=== PATIENT | male | born 1980 | race Caucasian/White ===

== ENCOUNTER 2016-11-05 03:14 | Emergency (ER) | payer MEDICAID ==
[~2016-11-05] VITALS: Ht 172.7 cm; Wt 77.0 kg
[2016-11-05] MEDS ORDERED: LORAZEPAM 2MG/ML CPJ IV STA (06:49)
[2016-11-05] MEDS ORDERED: LORAZEPAM 2MG/ML CPJ IM ONE (07:00)
[2016-11-05 07:42] LABS: CARBON DIOXIDE 25 mEq/L (21-32); CHLORIDE 106 mEq/L (98-107); ETHANOL BLOOD 29 mg/dL
[2016-11-05 07:47] LABS: BASOPHILS % 0.5 % (0.0-2.0); EOSINOPHILS % 0.8 % (0.0-5.0); HEMATOCRIT. 41.5 % (42.0-52.0); HEMOGLOBIN. 14.5 g/dL (14.0-18.0); LYMPHOCYTES % 25.6 % (20.0-50.0); MEAN CORPUSCULAR HEMOGLOBIN 31.3 pg (28.0-32.0); MEAN CORPUSCULAR VOLUME 89.8 fL (80.0-94.0); MEAN PLATELET VOLUME 7.8 fl (7.4-10.4); MONOCYTES % 8.3 % (2.0-8.0); NEUTROPHILS % 64.8 % (40.0-76.0); PLATELET 221 x1000/uL (130-400); RED BLOOD CELL COUNT 4.62 mill/uL (4.7-6.1); RED CELL DISTRIBUTION WIDTH 13.3 % (11.6-14.6)
[2016-11-05 08:56] VITALS: BP 95/54
== END 2016-11-05 10:22 | disposition home or self-care (01) ==
LOC: ER 03:24
DX: R44.0 Auditory hallucinations (principal); R45.851 Suicidal ideations; F31.9 Bipolar disorder, unspecified; F12.10 Cannabis abuse, uncomplicated
CPT/HCPCS: 36415; 80053; 80307; 80329; 85025; 96372; 99284; G0482; J2060; Z7610

== ENCOUNTER 2021-10-30 20:09 | Emergency (ER) | payer MEDICAID ==
[~2021-10-30] VITALS: Ht 185.4 cm; Wt 87.0 kg
[2021-10-30 21:16] VITALS: BP 112/78
== END 2021-10-30 21:20 | disposition home or self-care (01) ==
LOC: ER 20:09
DX: S01.112A Laceration without foreign body of left eyelid and periocular area, initial encounter (principal); Y08.89XA Assault by other specified means, initial encounter; Y93.89 Activity, other specified; Y92.89 Other specified places as the place of occurrence of the external cause; Y99.8 Other external cause status; F31.9 Bipolar disorder, unspecified; F17.290 Nicotine dependence, other tobacco product, uncomplicated; F12.10 Cannabis abuse, uncomplicated
CPT/HCPCS: 12011; 99282

== ENCOUNTER 2023-10-04 19:21 | Emergency (ER) | payer MEDICAID ==
[~2023-10-04] VITALS: Ht 172.7 cm; Wt 87.0 kg
[2023-10-04 19:35] VITALS: TEMP 99.1; O2SAT 100
[2023-10-04] MEDS: ACETAMINOPHEN 500MG TABLET PO ONE (20:05)
[2023-10-04] MEDS: LORAZEPAM 0.5MG TABLET PO ONE (20:10)
[2023-10-04] MEDS: IBUPROFEN 800MG TABLET PO ONE (20:11)
[2023-10-04] MEDS: MIDAZOLAM HCL 2 MG/2 ML VIAL IM ONE (20:43)
[2023-10-04 22:30] LABS: *AMPHETAMINES SCREEN URINE NEGATIVE (NEGATIVE); *BARBITURATES SCREEN URINE NEGATIVE (NEGATIVE); *BENZODIAZEPINES SCREEN URINE NEGATIVE (NEGATIVE); *COCAINE SCREEN URINE NEGATIVE (NEGATIVE); CANNABINOID URINE SCREEN PRESUMPTIVE POSITIVE (NEGATIVE); ECSTASY MDMA SCREEN URINE NEGATIVE (NEGATIVE); METHADONE URINE SCREEN NEGATIVE (NEGATIVE); OPIATES URINE SCREEN NEGATIVE (NEGATIVE); PHENCYCLIDINE URINE SCREEN NEGATIVE (NEGATIVE)
[2023-10-04] MEDS: DIPHENHYDRAMINE 50MG/ML VIAL IM ONE (22:38)
[2023-10-04] MEDS: HALOPERIDOL LACTATE 5MG/ML VIAL IM ONE (22:38)
[2023-10-05 00:13] LABS: BASOPHILS % 0.4 % (0.0-2.0); HEMATOCRIT. 43.5 % (42.0-52.0); HEMOGLOBIN. 14.9 g/dL (14.0-18.0); LYMPHOCYTES % 12.1 % (20.0-50.0); MEAN CORPUSCULAR HEMOGLOBIN 32.1 pg (28.0-32.0); MEAN CORPUSCULAR HGB CONC 34.1 g/dL (31.0-37.0); MEAN CORPUSCULAR VOLUME 94.1 fL (80.0-94.0); MEAN PLATELET VOLUME 7.1 fl (7.4-10.4); MONOCYTES % 3.9 % (2.0-8.0); NEUTROPHILS % 83.6 % (40.0-76.0); PLATELET 284 x1000/uL (130-400); RED BLOOD CELL COUNT 4.63 mill/uL (4.7-6.1); RED CELL DISTRIBUTION WIDTH 13.1 % (11.6-14.6); WHITE BLOOD COUNT 13.4 x1000/uL (4.5-11.0)
[2023-10-05 00:14] LABS: CHLORIDE 107 mEq/L (98-107); POTASSIUM 3.9 mEq/L (3.5-5.1); SODIUM 140 mEq/L (136-145)
[2023-10-05 00:15] LABS: CALCIUM 8.6 mg/dL (8.7-10.4); CARBON DIOXIDE 23 mEq/L (21-32)
[2023-10-05 00:20] LABS: CREATININE 0.8 mg/dL (0.6-1.3); GLUCOSE 107 mg/dL (70-105); UREA NITROGEN BLOOD 8 mg/dL (9-23)
[2023-10-05 00:22] LABS: ACETAMINOPHEN 5 ug/mL (10-30)
[2023-10-05 00:50] LABS: ETHANOL BLOOD 279 mg/dL (<10)
[2023-10-05 06:52] VITALS: BP 111/79; PULSE 84; RESP 14; O2SAT 98
== END 2023-10-05 11:29 | disposition home or self-care (01) ==
LOC: ER 19:21
DX: F10.129 Alcohol abuse with intoxication, unspecified (principal); F12.90 Cannabis use, unspecified, uncomplicated; F31.9 Bipolar disorder, unspecified; M79.671 Pain in right foot; Y90.9 Presence of alcohol in blood, level not specified
CPT/HCPCS: 80305; 80048; 80307; 80329; 80320; 85025; 36415; 73610; 73630; 96372; 99291; J1200; J1630; J2250; Z7610 ×2; 96361; 96374; 96375; G0480